=== PATIENT | female | born 1970 | race Caucasian/White ===

== ENCOUNTER → 2017-08-20 | Outpatient (CLI) | payer OTHER ==
--- NOTE | 2017-08-20 16:44 | DIAGNOSTIC IMAGING REPORT ---
PELVIC ULTRASOUND, TRANSABDOMINAL AND TRANSVAGINAL HISTORY: MENORRHAGIA COMPARISON: None. FINDINGS: Uterus: 9.3 x 5.7 x 3.9 cm. There is a scar at the lower uterine segment. A 1.2 x 0.9 x 0.7 cm fibroid at the left anterior uterine wall. This appears to be intramural. There is also a 6 mm intramural fibroid within the right anterior uterine wall. Endometrial stripe: 4 mm in thickness. Right ovary: Normal in size and demonstrates normal color flow. There are 2 cysts with the largest measuring 1.8 cm. Left ovary: Normal in size and demonstrates normal color flow. A few cysts with the largest measuring 2.9 cm. Miscellaneous:No pelvic free fluid. IMPRESSION: 1. A few small uterine fibroids as described above. 2. The endometrial stripe is normal in thickness. 3. Bilateral ovarian cysts. Electronically signed by: Jr Gibbs M.D. 08/20/2017 4:43 PM Dictated Date/Time: 08/20/2017 4:41 PM
== END | disposition home or self-care (01) ==
LOC: C.ULTR 15:23
PROVIDERS: ATTEND Family Medicine
DX: N92.0 Excessive and frequent menstruation with regular cycle (principal); D25.9 Leiomyoma of uterus, unspecified; N83.201 Unspecified ovarian cyst, right side; N83.202 Unspecified ovarian cyst, left side

== ENCOUNTER 2024-10-20 03:43 | Observation (INO) ==
--- NOTE | 2024-10-20 03:50 | Emergency Department Note ---
Impression & Plan Chest pain, Elevated troponin ED Provider Note NAME: DASHA SANDRA AGE: 54 SEX: F : 1970 ARRIVES VIA: Walk-In INFORMANT: Patient, ED PROVIDER(S): Brian Hernandez MD CHIEF COMPLAINT: Chest pain MEDICAL DECISION MAKING: Patient returned after leaving without being seen after review the patient's blood work showed an elevated troponin. Patient's EKG shows T wave flattening no obvious STEMI no active chest pain though currently. Repeat blood work was obtained. Chest x-ray also performed. Blood work shows a normal white count H&H and platelet count kidney function is unremarkable. Troponin is improved compared to prior. Patient was ordered full dose aspirin. I did speak with the on-call hospitalist service Dr. Walker and the patient was evaluated. Discussion w/ other healthcare providers: Dr. Walker inpatient medicine service Prior /Outside records reviewed: None Differential diagnosis: Cardiac ischemia, aortic dissection, pulmonary embolism, pneumothorax, pneumonia, pericarditis, myocarditis, GERD, cholecystitis, pancreatitis, musculoskeletal, as well as other pathologies were considered. Diagnostics, as interpreted by me: ECG: Sinus bradycardia, rate of 53, normal intervals, normal axis no ST elevations T wave flattening in V2. No obvious STEMI. Cardiac monitoring: An order was placed for continuous cardiac monitoring. The monitor shows a rate of 62 with sinus rhythm. Patient was placed on pulse oximetry Medical decision rules: Heart score Imaging studies: I informally interpreted the patient's chest x-ray does not show obvious pneumonia or pneumothorax with formal report to follow. HPI: Patient presents due to concern for chest pains. Patient reports that it woke her up from sleep around 145 this morning. The patient presented here but that it dissipated and left. The patient was called back as the patient was noted to have an elevated troponin. Patient reports that the chest pain was left-sided underneath the left breast a sharp pressure with associated diaphoresis and nausea. No vomiting. Patient denies any formal history of heart or lung disease. No history of DVT or PE. Patient denies any cough or fever no recent surgeries procedures or hospitalizations and no recent prolonged car plane travel. Patient did not take anything for it at the time that it occurred. It lasted approximate 15 or 20 minutes in duration. Patient denies any family history in parents or siblings of heart attack or stroke before the age of 65. Patient states that she thought it may have been an allergy as the patient does have a slight wheat intolerance but she usually has this discomfort in the center of her chest. Patient states that she did drink 1 glass of wine and does eat wheat but typically does not have any of these issues. Patient denies any tobacco or drug use. Patient does not take any chronic medications. PAST MEDICAL HISTORY: See Below PAST SURGICAL HISTORY: See Below SOCIAL HISTORY: See Below HOME MEDICATIONS: See Below ALLERGIES: See Below VITALS: See Below PHYSICAL EXAMINATION: GENERAL: NAD, non-toxic. EYE EXAM: Normal conjunctiva. PERRL, no anisocoria and EOM's grossly intact w/o pain. OROPHARYNX: Moist mucus membranes, grossly normal dentition. NECK: Trachea midline, no stridor. Supple, no nuchal rigidity, no adenopathy, non-tender. No signs of meningismus. FROM of the neck with good chin to chest and neck extension. LUNGS: Clear to auscultation. Normal chest wall mechanics. HEART: NSR, no MRG. ABDOMEN: Abdomen soft, non-tender, no masses, no rebound or guarding. BACK: No CVA TTP. SKIN: No rashes and no bruising. UPPER EXTREMITIES: Upper extremities are grossly normal. LOWER EXTREMITIES: Grossly normal, no edema. Negative Homans' sign bilaterally. NEURO EXAM: A&O x3, cranial nerves II-XII grossly intact, normal speech, moves all 4 extremities. Past Med/Surg History Problem List (Updated 10/20/24 @ 06:36 by Brian Hernandez MD) Elevated troponin (Acute) Chest pain (Acute) Abnormal uterine bleeding (AUB) Medical History No known health problems Surgical History S/p breast implant removal (~02/2019) History of esophagogastroduodenoscopy (EGD) History of colonoscopy Tubal ligation status (~2005) H/O breast augmentation (~2008) Family History Father Family history of diabetes mellitus Social History Smoking Status: Never smoker Second Hand Exposure: Yes (as a child); Do You Dip or Chew Tobacco: No; Hx Alcohol Use: Yes Alcohol type: beer and wine Hx Substance Use: No Preferred Language: Malay Communication Ability: Effective Timber Robber Required: No Beliefs That Will Affect Care: None Current Living Situation: Family Feels Safe at Home: Yes Assistive Devices: Glasses Allergies Allergies Allergy/AdvReac Type Severity Reaction Status Date / Time No Known Allergies Allergy Verified 03/07/24 13:20 Home Meds Home Medications Medication Instructions Recorded Confirmed cholecalciferol (vitamin D3) 25 1,000 unit PO DAILY 01/30/19 03/07/24 mcg (1,000 unit) capsule multivitamin 1 tab PO QAM 03/19/21 03/07/24 Previous Rx's Medication Instructions Recorded epinephrine 0.3 mg/0.3 mL 0.3 mg (0.3 mL) IM ONCE PRN 09/07/22 injection, auto-injector anaphylaxis #1 dose pk Results & Data (ED) Vital Signs Vital Signs - 24 hr 10/20/24 03:45 10/20/24 03:51 10/20/24 03:55 Temperature 36.5 C Temperature Source Temporal Artery Scan Pulse Rate 52 L 55 L Pulse Rate from SpO2 Sensor Respiratory Rate 18 Respiratory Effort / Characteristics Non-Labored Respiratory Depth Normal Normal Blood Pressure 139/84 Blood Pressure Mean 102 Pulse Oximetry 100 Oxygen Delivery Method Room Air Room Air Sepsis Recent Fever Within 48 Hours No Sepsis New/Unexplained Change in Mental Status N/A Sepsis Action Taken by Nursing No Action Required 10/20/24 03:55 10/20/24 04:00 10/20/24 04:24 Temperature Temperature Source Pulse Rate 62 53 L Pulse Rate from SpO2 Sensor 52 L Respiratory Rate 16 14 Respiratory Effort / Characteristics Respiratory Depth Blood Pressure 149/81 H Blood Pressure Mean 103 Pulse Oximetry 100 99 Oxygen Delivery Method Room Air Sepsis Recent Fever Within 48 Hours Sepsis New/Unexplained Change in Mental Status Sepsis Action Taken by Nursing 10/20/24 04:39 Temperature Temperature Source Pulse Rate Pulse Rate from SpO2 Sensor 58 L Respiratory Rate Respiratory Effort / Characteristics Respiratory Depth Blood Pressure 123/61 Blood Pressure Mean 81 Pulse Oximetry 99 Oxygen Delivery Method Sepsis Recent Fever Within 48 Hours Sepsis New/Unexplained Change in Mental Status Sepsis Action Taken by Shelter Medications Current Medication List: was personally reviewed by me Laboratory Data Attestation: I reviewed the patient's lab results. 10/20/24 03:48 10/20/24 03:48 Lab Results 10/20/24 Range/Units 03:48 WBC 8.55 (4.8-10.8) K/ul RBC 4.66 (4.20-5.40) M/uL Hgb 14.1 (12.0-16.0) g/dl Hct 41.7 (37.0-47.0) % MCV 89.5 (80.0-100.0) fL MCH 30.3 (25.0-34.0) pg MCHC 33.8 (32.0-36.0) g/dL RDW Std Deviation 39.2 (36.4-46.3) fL RDW Coeff of Tahira 12.0 (11.5-14.5) % Plt Count 250 (130-400) K/uL MPV 10.0 (9.4-12.4) fL Immature Gran % (Auto) 0.1 % Neut % (Auto) 48.8 % Lymph % (Auto) 40.8 % Cedar % (Auto) 7.4 % Eos % (Auto) 2.2 % Baso % (Auto) 0.7 % Neut # (Auto) 4.17 (1.40-6.50) K/uL Lymph # (Auto) 3.49 H (1.20-3.40) K/uL Cedar # (Auto) 0.63 H (0.11-0.59) K/uL Eos # (Auto) 0.19 (0.00-0.50) K/uL Baso # (Auto) 0.06 (0.00-0.20) K/uL Immature Gran # (Auto) 0.01 (0.01-0.20) K/uL Sodium 137 (136-145) mmol/L Potassium 4.0 (3.5-5.1) mmol/L Chloride 104 (98-107) mmol/L Carbon Dioxide 29 (21-32) mmol/L Anion Gap 4 (3-11) BUN 16 (6-23) mg/dl Creatinine 0.86 (0.6-1.2) mg/dl Est Cr Clr Drug Dosing 71.5 ml/min eGFR 80.73 BUN/Creatinine Ratio 18.6 (10-20) Glucose 98 (70-99(Fasting)) mg/dl Calcium 9.1 (8.6-10.3) mg/dl Total Bilirubin 0.3 (0.2-1.0) mg/dl AST 25 (13-39) U/L ALT 13 (7-52) U/L Alkaline Phosphatase 52 (34-104) U/L Troponin I High Sens 12.0 (0-14) pg/ml Total Protein 7.3 (6.0-8.3) gm/dl Albumin 4.3 (3.4-5.0) gm/dl Globulin 3.0 (2.5-4.0) gm/dl Albumin/Globulin Ratio 1.4 (0.9-2) Lipase 29 (11-82) U/L Administered Medications Discontinued Medications Aspirin (Aspirin Chew 324 Mg) 324 mg PO NOW STA Stop: 10/20/24 04:46 Last Admin: 10/20/24 04:53 Dose: 324 mg Documented By: ANJELICA Imaging Data Radiologist's Impression: Chest X-Ray 10/20/24 03:48 EXAM: XR chest 1V portable CLINICAL HISTORY: Chest pain, nonspecific. TECHNIQUE: An X-ray image of the chest is obtained in AP projection. COMPARISON: No prior studies are available for comparison. FINDINGS: Pulmonary Parenchyma: Prominent bilateral bronchovascular markings are noted. Lungs are clear bilaterally. No evidence of consolidation, collapse, or focal opacities. No pulmonary nodules are identified. No evidence of pleural effusion or pleural thickening. Heart and Mediastinum: Heart size and shape are normal. No mediastinal widening or masses. No hilar or mediastinal lymphadenopathy. Bony Thorax: Bony thorax appears intact without fractures or deformities. Soft Tissues: Soft tissues overlying the chest wall are unremarkable. IMPRESSION: 1. Prominent bilateral bronchovascular markings are noted. 2. No acute cardiopulmonary abnormalities are identified. Electronically signed by Dylan Lanza 10-20-2024 05:57 AM Discharge Plan Visit Data Chief Complaint: Chest Pain Stated Complaint: CHEST PAIN ED Provider: Brian Hernandez Discharge Problem: Chest pain, Elevated troponin Forms Stand Alone Forms: [employer] Prescriptions Prescriptions: No Action epinephrine 0.3 mg/0.3 mL auto-injector 0.3 mg IM ONCE PRN (Reason: anaphylaxis) Qty: 1 0RF Rx Instructions: May repeat once in 10 minutes if symptoms have not improved with first dose cholecalciferol (vitamin D3) 1,000 unit capsule 1,000 unit PO DAILY multivitamin Tablet 1 tab PO QAM Referrals Referrals: Yin Brown MD [Primary Care Provider] - Discharge Problem: Chest pain Qualifiers: Chest pain type: unspecified Qualified Code(s): R07.9 - Chest pain, unspecified
[2024-10-20 04:13] LABS: Basophils # (auto) 0.06 K/uL (0.00-0.20); Basophils % (auto) 0.7 %; Eosinophils # (auto) 0.19 K/uL (0.00-0.50); Eosinophils % (auto) 2.2 %; Hematocrit (blood only) 41.7 % (37.0-47.0); Hemoglobin 14.1 g/dl (12.0-16.0); Immature Granulocytes # (auto) 0.01 K/uL (0.01-0.20); Immature Granulocytes % (auto) 0.1 %; Lymphocytes # (auto) 3.49 K/uL (1.20-3.40); Lymphocytes % (auto) 40.8 %; Mean Corpuscular Hemoglobin 30.3 pg (25.0-34.0); Mean Corpuscular Hgb Conc 33.8 g/dL (32.0-36.0); Mean Corpuscular Volume 89.5 fL (80.0-100.0); Monocytes # (auto) 0.63 K/uL (0.11-0.59); Monocytes % (auto) 7.4 %; Neutrophils # (auto) 4.17 K/uL (1.40-6.50); Neutrophils % (auto) 48.8 %; Platelet Count 250 K/uL (130-400); RDW Standard Deviation 39.2 fL (36.4-46.3); Red Blood Count 4.66 M/uL (4.20-5.40); White Blood Count 8.55 K/ul (4.8-10.8)
[2024-10-20 04:29] LABS: Albumin Globulin Ratio 1.4 (0.9-2); Albumin Level 4.3 gm/dl (3.4-5.0); BUN Creatinine Ratio 18.6 (10-20); Bilirubin,Total 0.3 mg/dl (0.2-1.0); Calcium 9.1 mg/dl (8.6-10.3); Creatinine Clr Calc Pharmacy 71.5 ml/min; Total Protein 7.3 gm/dl (6.0-8.3)
[2024-10-20] MEDS: ASPIRIN CHEW 324 MG PO STA (04:53)
--- NOTE | 2024-10-20 05:15 | History & Physical Report ---
Date of Service October 20, 2024 Assessment & Plan (1) Chest pain: (2) Elevated troponin: Plan 54 yo female with no significant PMHx, not on any daily medications admitted after episode of L sided chest pain and found to have borderline troponin. #Chest Pain/Elevated Troponin Currently without chest pain Received 324mg ASA Check echocardiogram Repeat troponin 10:00, 6 hours after most recent CXR with prominent bronchovascular markings FENGI: regular diet Code status: full code DVT prophylaxis: low risk Isolation: none Disposition: med/tele History of Present Illness Primary Care Provider: Yin Brown MD 54 yo female with no significant PMHx, not on any daily medications admitted after episode of L sided chest pain and found to have borderline troponin. Early this morning patient experienced an episode of L side chest pain that woke her from sleep. She presented at that time and had lab work obtained but elected to leave prior to being seen as her chest pain had resolved. The labs resulted and showed a borderline elevated troponin at 14.4 and she was contacted by the ER to return to the hospital for further evaluation. At this time the patient denies any active chest pain. No history of cardiopulmonary disease. No recent illness. No tobacco or drug use. ED course: Labs obtained largely unremarkable; Trop 14.4 initially, repeat at 12.0 EKG with T wave flattening, bradycardia CXR obtained Allergies Allergy/AdvReac Type Severity Reaction Status Date / Time shellfish derived Allergy Severe Anaphylaxis Unverified 10/20/24 09:09 wheat Allergy Severe Gastrointestinal Unverified 10/20/24 09:09 Upset Home Medications Medication Instructions Recorded Confirmed Type cholecalciferol (vitamin D3) 25 1,000 unit PO DAILY 01/30/19 10/20/24 History mcg (1,000 unit) capsule multivitamin 1 tab PO QAM 03/19/21 10/20/24 History epinephrine 0.3 mg/0.3 mL 0.3 mg (0.3 mL) IM ONCE PRN 09/07/22 10/20/24 Rx injection, auto-injector anaphylaxis #1 dose pk Past Med/Surg History Problem List (Updated 10/20/24 @ 06:36 by Brian Hernandez MD) Elevated troponin (Acute) Chest pain (Acute) Abnormal uterine bleeding (AUB) Medical History No known health problems Surgical History S/p breast implant removal (~02/2019) History of esophagogastroduodenoscopy (EGD) History of colonoscopy Tubal ligation status (~2005) H/O breast augmentation (~2008) Family History Father Family history of diabetes mellitus Social History Smoking Status: Never smoker Second Hand Exposure: Yes (as a child); Do You Dip or Chew Tobacco: No; Hx Alcohol Use: Yes Alcohol type: beer and wine Hx Substance Use: No Preferred Language: Sami Communication Ability: Effective Machine Egg Washer Required: No Beliefs That Will Affect Care: None Current Living Situation: Family Feels Safe at Home: Yes Assistive Devices: Glasses Review of Systems Review of Systems: reviewed, per HPI Physical Exam Physical Exam: Constitutional: well-appearing, no acute distress HEENT: NCAT, no conjunctival injection CV: regular rhythm, no murmur appreciated, extremities well-perfused, no LE edema Resp: CTABL, no wheezes/rales/rhonchi appreciated, no increased work of breathing GI: nondistended MSK: no gross deformities appreciated Skin: warm, dry, no rash appreciated Neuro: alert, oriented, no focal neurologic deficit appreciated Results & Data Results & Data Vital Signs (Past 12 Hours) Vital Signs Temp Pulse Resp BP Pulse Ox O2 Del Method 10/20/24 04:24 53 L 14 149/81 H 99 10/20/24 04:00 62 16 10/20/24 03:55 100 Room Air 10/20/24 03:55 Room Air 10/20/24 03:51 55 L 10/20/24 03:45 36.5 C 52 L 18 139/84 100 Room Air Supervising Physician Co-Signing Physician Notes I personally saw and examined the patient. I independently reviewed the labs, EKG, imaging, problem list, medication list, past medical history and family history. I verified all cody points and agree with resident physician Dr Carroll Bojorquez DO with the following exceptions and/or additions: 54 year old female who presents to the ER with left chest pain. Occurred at night. Increased stress this last week. Intermittently gets GERD and takes PPI intermittently but not recently. Currently chest pain free. O/E HS RRR, no murmurs, Chest CTAB, Abdo SNT A/P Atypical chest pain - trend troponin, resting TTE, if normal can likely be discharged with suspect etiology of GERD. Advised to return if having exertional chest pain Resident Activity Tracking Resident Involvement: Resident Care Provided Care Provided: Adult Hospital Medicine
--- NOTE | 2024-10-20 05:57 | XRay Report ---
EXAM: XR chest 1V portable CLINICAL HISTORY: Chest pain, nonspecific. TECHNIQUE: An X-ray image of the chest is obtained in AP projection. COMPARISON: No prior studies are available for comparison. FINDINGS: Pulmonary Parenchyma: Prominent bilateral bronchovascular markings are noted. Lungs are clear bilaterally. No evidence of consolidation, collapse, or focal opacities. No pulmonary nodules are identified. No evidence of pleural effusion or pleural thickening. Heart and Mediastinum: Heart size and shape are normal. No mediastinal widening or masses. No hilar or mediastinal lymphadenopathy. Bony Thorax: Bony thorax appears intact without fractures or deformities. Soft Tissues: Soft tissues overlying the chest wall are unremarkable. IMPRESSION: 1. Prominent bilateral bronchovascular markings are noted. 2. No acute cardiopulmonary abnormalities are identified. Electronically signed by Dylan Lanza 10-20-2024 05:57 AM
[2024-10-20] MEDS ORDERED: MAGNESIUM HYDROXIDE SUSP 30 ML UDC PO PRN (06:40)
[2024-10-20] MEDS ORDERED: ALUMINUM/MAGNESIUM SUSP 30 ML UDC PO PRN (06:40)
[2024-10-20] MEDS ORDERED: ACETAMINOPHEN 500 MG TAB PO PRN (06:40)
[2024-10-20] MEDS ORDERED: ONDANSETRON INJ 2 MG/ML 2 ML VIAL IV PRN (06:40)
[2024-10-20] MEDS ORDERED: POLYETHYLENE (MIRALAX) 17 GM PACK PO PRN (06:40)
--- NOTE | 2024-10-20 10:53 | Hospitalist Progress Note ---
Date of Service October 20, 2024 Assessment & Plan (1) Chest pain: Plan: Atypical left-sided chest pain occurred at rest. Now resolved. Troponin series is unremarkable. Serial EKGs unremarkable. Cardiac echo report is pending. Plan Home today, October 20. Follow-up with PCP who can decide if she needs outpatient stress testing or not Admission and Anticipated Discharge Date Admission Date: October 20, 2024 Subjective Currently asymptomatic. Chest discomfort has resolved. Troponin series is unremarkable. EKGs are unchanged. Cardiac echo report is pending Review of Systems 2 Review of Systems: Constitutionalno fever or chills ENTno blurred vision, no double vision, no epistaxis, no sore throat Respiratoryno cough, no wheezing, no shortness of breath Cardiacno palpitations, no chest pain, no syncope Stefania nausea, vomiting, diarrhea, melena, hematochezia GUno urinary retention, no urinary incontinence, no dysuria, no hematuria Musculoskeletalno joint pain, no muscle tenderness Skinno bruising, no rashes, no pruritus Neurono isolated weakness, no paresthesia, no weakness Psychno depression, no anxiety Physical Exam 2 Physical Exam: General-alert and oriented x3, no fever, no chills HEENT-head atraumatic and normocephalic, pupils equal and reactive to light, extraocular muscles intact Neck-no lymphadenopathy or thyromegaly, trachea midline Chest-clear to auscultation. No rales, wheezing or rhonchi Cardiac-regular rate and rhythm, normal S1 and S2 Abdomen-normal bowel sounds, no hepatosplenomegaly Extremities-no cyanosis, clubbing, or edema Neuro-cranial nerves II through XII intact, motor and sensory function within normal limits, strength symmetrical, no focal deficits Psych-normal affect, normal mood Results & Data Results & Data Vital Signs (Past 12 Hours) Vital Signs Temp Pulse Pulse Resp BP BP Pulse Ox 10/20/24 10:24 49 L 17 97 10/20/24 06:47 36.8 C 64 18 123/80 95 10/20/24 04:39 123/61 99 10/20/24 04:24 53 L 14 149/81 H 99 10/20/24 04:00 62 16 10/20/24 03:55 100 10/20/24 03:55 10/20/24 03:51 55 L 10/20/24 03:45 36.5 C 52 L 18 139/84 100 O2 Del Method 10/20/24 10:24 10/20/24 06:47 Room Air 10/20/24 04:39 10/20/24 04:24 10/20/24 04:00 10/20/24 03:55 Room Air 10/20/24 03:55 Room Air 10/20/24 03:51 10/20/24 03:45 Room Air Laboratory Results 10/20/24 03:48 10/20/24 03:48 PG Care Time/CCT Total # of Minutes Spent Total Time Spent with Patient: Total time spent is greater than 50% in coordination of care (as documented) at patient's floor/unit and/or counseling patient: Coding Level of Care Code 66097 SUB INP/OBS CARE 2/35MIN Diagnoses Chest pain R07.9 Chest pain type: unspecified (1) Chest pain Chest pain type: unspecified Qualified Code(s): R07.9 - Chest pain, unspecified
--- NOTE | 2024-10-20 10:56 | Discharge Summary ---
Discharge Summary Date of Service October 20, 2024 Principal Dx & Hospital Course #1 = Principal Diagnosis (1) Chest pain: Atypical left-sided chest pain occurred at rest. Now resolved. Troponin series is unremarkable. Serial EKGs unremarkable. Cardiac echo report is pending. Plan Home today, October 20. Follow-up with PCP who can decide if she needs outpatient stress testing or not Admission HPI Per Admitting Provider 54 yo female with no significant PMHx, not on any daily medications admitted after episode of L sided chest pain and found to have borderline troponin. Early this morning patient experienced an episode of L side chest pain that woke her from sleep. She presented at that time and had lab work obtained but elected to leave prior to being seen as her chest pain had resolved. The labs resulted and showed a borderline elevated troponin at 14.4 and she was contacted by the ER to return to the hospital for further evaluation. At this time the patient denies any active chest pain. No history of cardiopulmonary disease. No recent illness. No tobacco or drug use. ED course: Labs obtained largely unremarkable; Trop 14.4 initially, repeat at 12.0 EKG with T wave flattening, bradycardia CXR obtained Discharge Exam General-alert and oriented x3, no fever, no chills HEENT-head atraumatic and normocephalic, pupils equal and reactive to light, extraocular muscles intact Neck-no lymphadenopathy or thyromegaly, trachea midline Chest-clear to auscultation. No rales, wheezing or rhonchi Cardiac-regular rate and rhythm, normal S1 and S2 Abdomen-normal bowel sounds, no hepatosplenomegaly Extremities-no cyanosis, clubbing, or edema Neuro-cranial nerves II through XII intact, motor and sensory function within normal limits, strength symmetrical, no focal deficits Psych-normal affect, normal mood Discharge Plan Discharge Items Patient Disposition: Home - Self-Care Reason For Visit: ELEVATED TROPONIN Discharge Diagnosis: Atypical chest pain Activity: Resume your previous activity Non-emergency contact: Primary Care Provider Call non-emergency contact if: your symptoms worsen Follow-up/Referrals: Yin Brown MD [Primary Care Provider] - Diet: Regular Addtl Attending Provider Instructions: See primary care provider soon as possible to determine if outpatient stress testing is indicated Pending Studies at Discharge: Yes Studies:: Cardiac echo report Stand-Alone Forms: [employer], Smoking Cessation Medications and DC Order Prescriptions: Continued epinephrine 0.3 mg/0.3 mL auto-injector 0.3 mg IM ONCE PRN (Reason: anaphylaxis) Qty: 1 0RF Rx Instructions: May repeat once in 10 minutes if symptoms have not improved with first dose cholecalciferol (vitamin D3) 1,000 unit capsule 1,000 unit PO DAILY multivitamin Tablet 1 tab PO QAM Discharge Orders: Discharge Order (Routine); Ordered 10/20/24 Ordered By: Rodrigo Torres Admission Data Admit Date/Time: 10/20/24 05:07 Attending Provider: Rodrigo Torres Admit Provider: Carroll Bojorquez Primary Care Provider: Yin Brown Other Providers: Humble Walker Hospital Stay Data Consultations 10/20/24 04:46 ED Decision to Admit Stat Pending Results Patient Have Any Pending Studies at Discharge: Yes Discharge Instructions Given to Patient (Per Discharging Provider) See primary care provider soon as possible to determine if outpatient stress testing is indicated Total Time Total Time Spent Total Time Spent (In Minutes): 45 minutes Coding Level of Care Code 62750 INP/OBS DISCH >30 MIN Diagnoses Chest pain R07.9 Chest pain type: unspecified
--- NOTE | 2024-10-20 14:23 | Electrocardiogram Report ---
Test Reason : Blood Pressure : */* mmHG Vent. Rate : 53 BPM Atrial Rate : 53 BPM P-R Int : 170 ms QRS Dur : 80 ms QT Int : 422 ms P-R-T Axes : 43 25 41 degrees QTcB Int : 395 ms Sinus bradycardia Low voltage QRS Borderline ECG When compared with ECG of 20-Oct-2024 02:15, (unconfirmed) No significant change was found Confirmed by Rc Blue ([id number]) on 10/20/2024 2:23:25 PM Referred By: REFERRED SELF Confirmed By: Rc Blue
--- NOTE | 2024-10-20 14:27 | Electrocardiogram Report ---
Test Reason : Blood Pressure : */* mmHG Vent. Rate : 56 BPM Atrial Rate : 56 BPM P-R Int : 170 ms QRS Dur : 80 ms QT Int : 454 ms P-R-T Axes : 38 12 56 degrees QTcB Int : 438 ms Sinus bradycardia Low voltage QRS Nonspecific T wave abnormality Abnormal ECG When compared with ECG of 20-Oct-2024 03:51, (unconfirmed) No significant change was found Confirmed by Rc Blue ([id number]) on 10/20/2024 2:27:27 PM Referred By: REFERRED SELF Confirmed By: Rc Blue
--- NOTE | 2024-10-20 14:56 | XCELERA ---
[id number]
--- NOTE | 2024-10-23 06:18 | Billing Data ---
Date of Service October 20, 2024 Coding Level of Care Code 31494 INT INP/OBS CARE
== END 2024-10-20 11:08 | disposition home or self-care (01) ==
LOC: SUATTDRO → ED 03:43 → EDINP 03:43 → SUATTDRO 05:07 → EDINP 06:39